=== PATIENT | female | born 1960 | race Caucasian/White ===

== ENCOUNTER 2023-11-02 13:09 | Emergency (ER) | payer MEDICARE, SELFPAY ==
[2023-11-02] VITALS (7 sets, daily range): BP systolic 110–124; BP diastolic 66–85; PULSE 81–95; RESP 17–22; TEMP 36.4–36.8; O2SAT 86–96; BMI 27.0
--- NOTE | 2023-11-02 13:28 | CT_ITS ---
HISTORY: Fall, right-sided rib pain. TECHNIQUE: Helically acquired images were obtained of the chest without contrast. A radiation dose optimization technique was used for this scan. 852 images. COMPARISON: None. FINDINGS: LARGE AIRWAYS: Trace bubbly fluid extending from the trachea into the right bronchus. LUNGS: Irregular 1.5 cm right upper lobe opacity. Right perihilar fibrotic mass with irregular linear opacities with bronchiectasis extending into the medial aspect of the upper, middle, and lower lobes. Several 1-2 mm bilateral upper lobe nodules. PLEURA: No pneumothorax or significant pleural effusion. HEART/PERICARDIUM: Heart within normal limits in size with coronary artery calcification. No pericardial effusion. VESSELS: Thoracic aorta nondilated. Right chest wall port with catheter tip in the distal superior vena cava. Calcification in the left brachiocephalic vein compatible with chronic thrombus. MEDIASTINUM/SIDNEY: Right hilar and peribronchial soft tissue thickening. Volume loss with rightward mediastinal shift. UPPER ABDOMEN: Renal vascular calcifications present. BONES: Nondisplaced left anterior fourth, anterolateral fifth, and sixth rib fractures. Thoracic spinal electrode present. Mild degenerative change and osteopenia. No acute displaced right rib fractures. Mild chronic L1 compression fracture. CT/Chest without Contrast IMPRESSION: Nondisplaced left fourth, fifth, sixth rib fractures. 1.5 cm irregular right upper lobe pulmonary nodule or scar. Recommend correlation with prior imaging, close follow-up, and/or PET-CT to assess for neoplasm. Right hilar soft tissue thickening with perihilar fibrotic mass, likely representing neoplasm and posttreatment/postinflammatory change. Recommend clinical prior imaging or follow-up to assess for residual or recurrent mass. Bilateral upper lobe micronodules. Electronically Signed: Saira Mendez MD at 14:19 EDT ,
--- NOTE | 2023-11-02 13:40 | EDS_ITS ---
HPI <CORNELIA Mckenzie - Last Filed: 11/02/23 18:48> History of Present Illness Chief Complaint: Shortness of Breath Narrative Narrative: 63-year-old female states she tripped and fell in her home 2 days ago landing on the left side of her back and ribs. She bumped the back of her head but denies LOC. She was able to get up and ambulate but since then has had back pain and feels short of breath. She called EMS today due to these ongoing symptoms. She denies headache, neck pain, visual changes, nausea or vomiting. No blood thinners. PFSH <CORNELIA Mckenzie - Last Filed: 11/02/23 18:48> [facility] Medical History (Updated 11/02/23 @ 14:28 by CORNELIA Mckenzie) Colon cancer Lung cancer COPD (chronic obstructive pulmonary disease) Allergy/AdvReac Type Severity Reaction Status Date / Time hydrocortisone AdvReac NAUSEA Verified 11/02/23 13:15 Social History Smoking Status: Current every day smoker tobacco type: cigarettes ROS <CORNELIA Mckenzie - Last Filed: 11/02/23 18:48> ROS ED ROS Narrative Constitutional: Negative for fever, chills, malaise. CVS: Negative for chest pain. Respiratory: Positive for shortness of breath. Negative for cough. GI: Negative for abdominal pain, nausea, vomiting. Neuro: Negative for headache. EXAM <CORNELIA Mckenzie - Last Filed: 11/02/23 18:48> Physical Exam Narrative Exam Narrative: CONST: Patient sitting in no acute distress. EYES: Normal inspection. NECK: Normal inspection. RESP: No respiratory distress, CTAB. Tender over the left lateral and posterior rib cage without deformity or crepitus, no bruising. CVS: Regular rate and rhythm, no murmur, no gallop. ABD: Soft and nontender, no guarding or rebound, nondistended. Back: Normal inspection, no midline tenderness. SKIN: Color normal, no rash, warm, dry, intact. EXTREMITIES: Normal appearance, no pedal edema. NEURO: Alert and answering questions appropriately. PSYCH: Normal affect. Const Vital Signs: 11/02/23 13:11 11/02/23 13:14 11/02/23 13:16 Temperature 98.2 F 98.2 F Temperature Source Oral Oral Pulse Rate 95 92 Respiratory Rate 20 H 20 H Respiratory Effort Short of Breath Blood Pressure 111/85 H 124/77 H Blood Pressure Mean 93 92 Pulse Ox 94 96 Oxygen Delivery Method Room Air Room Air Room Air Oxygen Flow Rate (L/min) 11/02/23 14:14 11/02/23 14:32 11/02/23 14:55 Temperature 97.5 F L 97.5 F L Temperature Source Temporal Pulse Rate 81 89 Respiratory Rate 22 H 17 Respiratory Effort Blood Pressure 110/66 110/77 Blood Pressure Mean 80 88 Pulse Ox 86 94 95 Oxygen Delivery Method Room Air Nasal Cannula Oxygen Flow Rate (L/min) 2 11/02/23 14:56 Temperature Temperature Source Pulse Rate Respiratory Rate Respiratory Effort Blood Pressure Blood Pressure Mean Pulse Ox 95 Oxygen Delivery Method Room Air Oxygen Flow Rate (L/min) <Dr. Macario Dubois MD - Last Filed: 11/02/23 14:56> Physical Exam Const Vital Signs: 11/02/23 13:11 11/02/23 13:14 11/02/23 13:16 Temperature 98.2 F 98.2 F Temperature Source Oral Oral Pulse Rate 95 92 Respiratory Rate 20 H 20 H Respiratory Effort Short of Breath Blood Pressure 111/85 H 124/77 H Blood Pressure Mean 93 92 Pulse Ox 94 96 Oxygen Delivery Method Room Air Room Air Room Air Oxygen Flow Rate (L/min) 11/02/23 14:14 11/02/23 14:32 11/02/23 14:55 Temperature 97.5 F L 97.5 F L Temperature Source Temporal Pulse Rate 81 89 Respiratory Rate 22 H 17 Respiratory Effort Blood Pressure 110/66 110/77 Blood Pressure Mean 80 88 Pulse Ox 86 94 95 Oxygen Delivery Method Room Air Nasal Cannula Oxygen Flow Rate (L/min) 2 11/02/23 14:56 Temperature Temperature Source Pulse Rate Respiratory Rate Respiratory Effort Blood Pressure Blood Pressure Mean Pulse Ox 95 Oxygen Delivery Method Room Air Oxygen Flow Rate (L/min) MDM <CORNELIA Mckenzie - Last Filed: 11/02/23 18:48> [facility] MDM Narrative Medical decision making narrative: History gathered from: Patient and EMS Differential: Rib contusions, rib fracture, pneumothorax Patient had a mechanical fall 2 days ago onto her left ribs and back and presents with pain and shortness of breath. She appears well and nontoxic. Vital signs stable. She is speaking full sentences in no distress and 95% on room air. Normal heart and lung sounds. She is diffusely tender over the left lateral posterior rib cage. No spinal tenderness. She is moving her upper or lower extremities and neurovascularly intact. CT scan shows nondisplaced left 4, 5, 6 rib fractures. No pneumothorax. She also has incidental hilar soft tissue thickening/mass which should be evaluated further outpatient with her history of lung cancer. After IV morphine she feels improved was able to ambulate and has normal O2 saturations. She is comfortable going home. She already has Percocet for chronic pain and was discharged in stable condition. I have personally performed a face to face assessment of the patient and have reviewed the DELMI Note. I performed a substantive portion of the visit including all aspects of the following. My pierre findings include: History is 63-year-old female tripped and fell 2 days ago injuring her left small toe which she does not want x-rayed. And fell and hit her left rib cage. She has had a history of prior lung cancer. She had recurrence and radiation therapy for that. Hurts to move or take a deep breath on her left chest wall. Denies any head injury or LOC. Denies other [id number] female vital signs are stable afebrile. Pulse ox room air is 94%. H EENT exam unremarkable atraumatic. Neck nontender. Trachea midline. Lungs clear to auscultation bilaterally. Heart regular rhythm no murmur rate about 80. Chest wall reproducible pain along her left lateral and anterior rib cage. Midportion. No crepitance. No subcu air. No bruising at this time. Abdomen soft nontender normal bowel sounds no peritoneal signs. Back nontender. Neurologically she is awake and alert. Moving all 4 extremities. Her left small toe is bruised probably broken she does not want an x-ray to be obtained. The metacarpals and ankle are nontender. Neurologically she is awake alert no focal motor deficits. Exam is [see above.] Medical Decision Making [CAT scan of chest shows rib fractures of The fourth, fifth and sixth ribs. No pneumothorax. Consistent with where the patient is tender at. Discussed with the patient she has Percocet at home for pain. She is comfortable being discharged home. She fell 2 days ago.] Other additions or changes: [None] Radiography Diagnostic Testing: Clinical Impression(s) from Imaging Studies Chest CT 11/02/23 13:28 IMPRESSION: Nondisplaced left fourth, fifth, sixth rib fractures. 1.5 cm irregular right upper lobe pulmonary nodule or scar. Recommend correlation with prior imaging, close follow-up, and/or PET-CT to assess for neoplasm. Right hilar soft tissue thickening with perihilar fibrotic mass, likely representing neoplasm and posttreatment/postinflammatory change. Recommend clinical prior imaging or follow-up to assess for residual or recurrent mass. Bilateral upper lobe micronodules. Electronically Signed: Saira Mendez MD at 14:19 EDT , EKG Initial EKG: Attestation: I personally reviewed and interpreted this EKG as follows: Interpretation: Sinus Rhythm and No Acute Injury Pattern Comments: Normal sinus rhythm at 91 bpm Normal intervals, no acute ischemic changes <Dr. Macario Dubois MD - Last Filed: 11/02/23 14:56> [facility] MDM Narrative Medical decision making narrative: I have personally performed a face to face assessment of the patient and have reviewed the DELMI Note. I performed a substantive portion of the visit including all aspects of the following. My pierre findings include: History is 63-year-old female tripped and fell 2 days ago injuring her left small toe which she does not want x-rayed. And fell and hit her left rib cage. She has had a history of prior lung cancer. She had recurrence and radiation therapy for that. Hurts to move or take a deep breath on her left chest wall. Denies any head injury or LOC. Denies other [id number] female vital signs are stable afebrile. Pulse ox room air is 94%. H EENT exam unremarkable atraumatic. Neck nontender. Trachea midline. Lungs clear to auscultation bilaterally. Heart regular rhythm no murmur rate about 80. Chest wall reproducible pain along her left lateral and anterior rib cage. Midportion. No crepitance. No subcu air. No bruising at this time. Abdomen soft nontender normal bowel sounds no peritoneal signs. Back nontender. Neurologically she is awake and alert. Moving all 4 extremities. Her left small toe is bruised probably broken she does not want an x-ray to be obtained. The metacarpals and ankle are nontender. Neurologically she is awake alert no focal motor deficits. Exam is [see above.] Medical Decision Making [CAT scan of chest shows rib fractures of The fourth, fifth and sixth ribs. No pneumothorax. Consistent with where the patient is tender at. Discussed with the patient she has Percocet at home for pain. She is comfortable being discharged home. She fell 2 days ago.] Other additions or changes: [None] History & Record Review Discussion w/independent historian: Patient Additional record(s) reviewed:: Prior inpatient record and No prior records Radiography Diagnostic Testing: Clinical Impression(s) from Imaging Studies Chest CT 11/02/23 13:28 IMPRESSION: Nondisplaced left fourth, fifth, sixth rib fractures. 1.5 cm irregular right upper lobe pulmonary nodule or scar. Recommend correlation with prior imaging, close follow-up, and/or PET-CT to assess for neoplasm. Right hilar soft tissue thickening with perihilar fibrotic mass, likely representing neoplasm and posttreatment/postinflammatory change. Recommend clinical prior imaging or follow-up to assess for residual or recurrent mass. Bilateral upper lobe micronodules. Electronically Signed: Saira Mendez MD at 14:19 EDT , Discharge Plan Triage Chief Complaint: Shortness of Breath ED Midlevel Provider: Amelie Kaur ED Provider: Macario Dubois Dx/Rx/DC Orders Clinical Impression: Fall, Multiple rib fractures Instructions: ED Rib Fracture Primary Care Provider: Amie Reyna NP Referrals: Amie Reyna [employer], [facility] [Primary Care Provider] - As Needed Activity Restrictions/Additional Instructions: You broke 3 ribs on the left numbers 4, 5, and 6. These will take 6 to 12 weeks to heal. Take the Percocet you have at home, ice, and follow-up with your primary care doctor. There also is scar tissue or a mass in your lungs which should be evaluated with your history of cancer. Print Language: Slovak Disposition Disposition: Home, Self Care Discharge Date/Time: 11/02/23 15:06
--- NOTE | 2023-11-02 13:41 | EKG12_ITS ---
Test Reason : SOB Blood Pressure : / mmHG Vent. Rate : 091 BPM Atrial Rate : 091 BPM P-R Int : 180 ms QRS Dur : 064 ms QT Int : 364 ms P-R-T Axes : 057 -02 053 degrees QTc Int : 447 ms Normal sinus rhythm Low voltage QRS Borderline ECG Confirmed by MELVA NAJERA, RITIKA ([id number]), newspaper editor ILIANA GREGORY ([id number]) on 11/04/2023 9:51:02 AM Referred By: ERROL Confirmed By:FLAKITA FRYE MD
[2023-11-02] MEDS: Ondansetron 4 MG/2 ML Vial IV (13:53)
[2023-11-02] MEDS: Morphine 4 MG/ML Syringe IV (13:53)
== END 2023-11-02 15:06 | disposition home or self-care (01) ==
PROVIDERS: Emergency Provider Emergency Medicine; PCP Registered Nurse; Visit Provider Emergency Medicine
DX: S22.49XA Multiple fractures of ribs, unspecified side, initial encounter for closed fracture (principal); J44.9 Chronic obstructive pulmonary disease, unspecified; M54.9 Dorsalgia, unspecified; F17.210 Nicotine dependence, cigarettes, uncomplicated; W01.198A Fall on same level from slipping, tripping and stumbling with subsequent striking against other object, initial encounter; Y92.009 Unspecified place in unspecified non-institutional (private) residence as the place of occurrence of the external cause; Z85.038 Personal history of other malignant neoplasm of large intestine; Z85.118 Personal history of other malignant neoplasm of bronchus and lung
CPT/HCPCS: 71250; 93005; 99282; 99284; A4216; J2405